=== PATIENT | female | born 2000 | race Caucasian/White ===

== ENCOUNTER 2021-12-30 23:08 | Emergency (ER) | payer OTHER, MEDICAID ==
[~2021-12-30] VITALS: Ht 165.1 cm; Wt 68.0 kg
[2021-12-30 23:25] VITALS: BP 114/73
--- NOTE | 2021-12-31 00:33 | NUR ---
Dr. Glass examining patient.
[2021-12-31] MEDS ORDERED: CEPH-588 PO (00:41)
[2021-12-31] MEDS ORDERED: BACTO TP (00:41)
[2021-12-31 00:47] VITALS: BP 114/73
--- NOTE | 2021-12-31 00:47 | NUR ---
Patient discharged with v/s stable. Written and verbal after care instructions given and explained. Patient alert, oriented and verbalized understanding of instructions. Ambulatory with steady gait. All questions addressed prior to discharge. ID band removed. Patient advised to follow up with PMD. Rx of Bactroban 2 % oint given. Patient educated on indication of medication including possible reaction and side effects. Opportunity to ask questions provided and answered.
== END 2021-12-31 00:47 | disposition home or self-care (01) ==
LOC: MED 23:08
DX: R21 Rash and other nonspecific skin eruption (principal); L01.00 Impetigo, unspecified; Z79.899 Other long term (current) drug therapy
CPT/HCPCS: 99283

== ENCOUNTER 2022-03-23 21:21 | Emergency (ER) | payer OTHER, MEDICAID ==
[~2022-03-23] VITALS: Ht 165.1 cm; Wt 68.5 kg
[~2022-03-23 21:21] MED LIST: BACTO TP; CEPH-588 PO
[2022-03-23 21:35] VITALS: BP 115/72
--- NOTE | 2022-03-23 21:42 | NUR ---
pt to lobby
--- NOTE | 2022-03-24 00:07 | NUR ---
per admitting staff pt left facility without being seen by Dr. Glass.
== END 2022-03-24 00:07 | disposition left against medical advice (07) ==
LOC: MED 21:21
DX: M79.603 Pain in arm, unspecified (principal); Z53.21 Procedure and treatment not carried out due to patient leaving prior to being seen by health care provider

== ENCOUNTER 2023-04-14 21:04 | Emergency (ER) | payer MEDICAID, OTHER ==
[~2023-04-14] VITALS: Ht 165.1 cm; Wt 68.0 kg
[2023-04-14 21:30] VITALS: BP 109/58; PULSE 72; RESP 16; TEMP 97.4; O2SAT 99
[2023-04-14] MEDS: ACETAMINOPHEN EXTRA STRENGTH 500 MG TAB PO ONE (23:12)
[2023-04-14] MEDS: KETOROLAC 30 MG/ML VIAL IM ONE (23:13)
[2023-04-14 23:47] VITALS: BP 109/58; PULSE 72; RESP 16; TEMP 97.4; O2SAT 99
== END 2023-04-14 23:45 | disposition home or self-care (01) ==
LOC: MED 21:04
DX: M54.2 Cervicalgia (principal); M62.838 Other muscle spasm; Z79.899 Other long term (current) drug therapy
CPT/HCPCS: 96372; 99283; J1885